=== PATIENT | male | born 1995 ===

== ENCOUNTER 2018-12-18 14:25 | Inpatient (IN) | payer MEDICAID ==
[~2018-12-18] VITALS: Ht 182.9 cm; Wt 67.0 kg
[2018-12-18] MEDS ORDERED: ACET160E61 PO (17:41)
[2018-12-18] MEDS ORDERED: MELA3TAB PO (17:41)
[2018-12-18] MEDS ORDERED: NALO4SPR NS (17:41)
[2018-12-18] MEDS ORDERED: COLL30OI TOP (17:41)
[2018-12-18] MEDS ORDERED: MUPI22OI2 (17:41)
[2018-12-18] MEDS ORDERED: POLY17PO4 GT (17:41)
[2018-12-18] MEDS ORDERED: COLL1POW2 MC (17:41)
[2018-12-18] MEDS ORDERED: CHLO473M3 MM (17:41)
--- NOTE | 2018-12-18 18:04 | NUR ---
Patient admitted around 521pm in stable condition with family via private transport. Alert and oriented x 3. On full code with regular diet. DX: AVM/ deconditioning. Ambulate with walker/assist. skin intact. black scar on chin noted with treatment order. open to air. On pain management for S/P AVM chin. Continent in bowel and bladder. Last BM-3 days ago. On clear liquid in past 3 days. MD Gant and MD Ventura aware. will continue monitor.
[2018-12-18 18:12] VITALS: BP 139/71
--- NOTE | 2018-12-18 19:30 | NUR ---
PATIENT RECEIVED IN BED. ALERT AND ORIENTED X 4. C/O PAIN UPON ASSESSMENT IN LOWER JAW. WILL ADMINISTER PAIN MEDICATIONS. NO C/O SOB AND DISTRESS. SIDE RAIL UP BILATERALLY FOR SAFETY. WILL CONTINUE TO MONITOR
[2018-12-18] MEDS: OXYCODONE HCL 5 MG TABLET PO PRN (19:44)
[2018-12-18 20:33] VITALS: BP 133/71
--- NOTE | 2018-12-18 20:45 | NUR ---
FEEDER CATCHER PADILLA CONTACTED FOR MED RECON. WILL CONTINUE TO MONITOR.
[2018-12-19 06:15] VITALS: BP 127/51
--- NOTE | 2018-12-19 07:00 | NUR ---
Will endorse to police shift commander nurse that patient is currently out on pass Addendum: 12/20/18 at 0746 by BECCA DORSEY RN RN correct time [id number]
[2018-12-19 08:19] VITALS: BP 119/52
--- NOTE | 2018-12-19 08:24 | NUR ---
Patient noted using the restroom, complaints of mild pain but denies need for pain medication, no signs of distress noted, temperature of 99.2 noted, awaiting medication reconciliation, MD Ventura states she will be reconciling medication , call light in reach, breakfast given, bed locked and in lowest position, all needs met at this time
[2018-12-19 11:44] LABS: BASOPHILS % (AUTO) 0.5 % (0.0-2.0); EOSINOPHILS # (AUTO) 0.1 K/uL (0.0-0.7); EOSINOPHILS % (AUTO) 1.2 % (0.0-7.0); HEMATOCRIT 30.4 % (36.7-47.1); HEMOGLOBIN 9.5 g/dL (12.5-16.3); LYMPHOCYTES # (AUTO) 0.8 K/uL (20.0-40.0); LYMPHOCYTES % (AUTO) 13.3 % (20.5-51.5); MEAN CORPUSCULAR HEMOGLOBIN 23.7 uug (23.8-33.4); MEAN CORPUSCULAR HGB CONC 31 g/dL (32.5-36.3); MEAN CORPUSCULAR VOLUME 75.9 fL (73.0-96.2); MONOCYTES # (AUTO) 0.4 K/uL (2.0-10.0); MONOCYTES % (AUTO) 7.1 % (0.0-11.0); NEUTROPHILS # (AUTO) 4.5 K/uL (1.8-8.9); NEUTROPHILS % (AUTO) 77.9 % (38.5-71.5); PLATELET COUNT (AUTO) 529 K/uL (152-348); RED BLOOD CELL COUNT(AUTO) 4.01 MIL/uL (4.06-5.63); WHITE BLOOD COUNT (AUTO) 5.8 K/uL (3.6-10.2)
[2018-12-19] MEDS ORDERED: THERAHONEY GEL 1.5 OZ TUBE TOP SCH (12:00)
[2018-12-19 12:05] LABS: BILIRUBIN,TOTAL 0.4 mg/dL (0.2-1.0); CREATININE 0.8 mg/dL (0.6-1.3); POTASSIUM 3.9 mmol/L (3.5-5.1); TOTAL PROTEIN, SERUM 8.5 g/dL (6.4-8.2)
[2018-12-19] MEDS: ACETAMINOPHEN ES 500 MG TABLET PO SCH ×2 (13:17→16:57)
[2018-12-19] MEDS: CHLORHEXIDINE GLUCONATE 15 ML MOUTHWASH MM SCH (16:52)
[2018-12-19] MEDS: OXYCODONE HCL 5 MG TABLET PO PRN (16:52)
[2018-12-19] MEDS ORDERED: MUPIROCIN 2% OINT 22 GM TUBE TP SCH (17:00)
--- NOTE | 2018-12-19 18:26 | NUR ---
MD miguel frankayed patient to go out on pass 12/19/18 [id number] via private transport, patient left facility at 1730
[2018-12-19 18:42] VITALS: BP 122/62
[2018-12-19 20:00] VITALS: BP 140/71
--- NOTE | 2018-12-19 20:30 | NUR ---
Patient came back from out on pass at 7:40pm, Patient is alert and oriented x4. In NO acute distress. Skin warm and dry to touch. Vital signs taken and wnl for patient. Patient refused night time medication of Melatonin 3mg stating "I don't need it", explained and offered medication, pt. still refused. Patient still noted with right cheek wound d/t VMA; treatment still on going. No complains of pain at this time. Needs attended, safety measures in place, call light left at bed side and will continue with care.
[2018-12-19] MEDS: MELATONIN 3 MG TABLET PO SCH (20:46)
[2018-12-20 05:10] VITALS: BP 123/61
--- NOTE | 2018-12-20 06:53 | NUR ---
Patient sleeping at this time, easily arousable. Pt. is A&O x4. No acute distress noted at this time. No complains of pain. Vital signs taken stable for patient. Afebrile. Needs attended, Pt. ambulatory by self, safety measures in place, call light left at bed side, endorsed to next shift and will continue with care.
[2018-12-20] MEDS: MIRALAX 17 GM POWD.PACK GT SCH (08:22)
[2018-12-20] MEDS: OXYCODONE HCL 5 MG TABLET PO PRN ×2 (08:22→22:01)
[2018-12-20] MEDS: CHLORHEXIDINE GLUCONATE 15 ML MOUTHWASH MM SCH ×2 (08:22→17:14)
[2018-12-20] MEDS: ACETAMINOPHEN ES 500 MG TABLET PO SCH ×3 (08:22→17:14)
[2018-12-20] MEDS: SANTYL TOP SCH (08:26)
--- NOTE | 2018-12-20 08:44 | NUR ---
Patient noted resting in bed, arouses easily, request for oxycodone for facial pain 10/07, no signs of distress noted, call light in reach, bed locked and in lowest position, all needs met at this time
[2018-12-20] MEDS ORDERED: COLLAGENASE OINT 30 GM TUBE TOP SCH (09:00)
[2018-12-20 09:48] VITALS: BP 107/52
[2018-12-20 16:48] VITALS: BP 104/54
[2018-12-20 19:30] VITALS: BP 127/67
--- NOTE | 2018-12-20 19:30 | NUR ---
Patient alert and oriented x 4. Received outside, sitting in the courtyard. C/O of SOB or distress. Pain in jaw upon assessment. Will administer pain medication. Will continue to monitor.
--- NOTE | 2018-12-20 21:00 | NUR ---
Patient requesting out on pass to buy food at [address]. MD Alfreda WILSON out on pass. Will continue to monitor.
[2018-12-20] MEDS: MELATONIN 3 MG TABLET PO SCH (22:00)
[2018-12-21 06:07] VITALS: BP 132/57
[2018-12-21] MEDS: CHLORHEXIDINE GLUCONATE 15 ML MOUTHWASH MM SCH ×2 (08:26→17:20)
[2018-12-21] MEDS: ACETAMINOPHEN ES 500 MG TABLET PO SCH ×3 (08:26→17:00)
[2018-12-21] MEDS: MIRALAX 17 GM POWD.PACK GT SCH (08:26)
[2018-12-21] MEDS: SANTYL TOP SCH (08:30)
--- NOTE | 2018-12-21 08:59 | NUR ---
Patient noted resting in bed, arouses easily, denies pain, no signs of distress noted, call light in reach, bed locked and in lowest position, all needs met at this time
[2018-12-21 09:29] VITALS: BP 121/48
--- NOTE | 2018-12-21 15:59 | NUR ---
INDIVIDUALIZE PLAN OF CARE
[2018-12-21 16:36] VITALS: BP 121/45
[2018-12-21] MEDS: OXYCODONE HCL 5 MG TABLET PO PRN (17:20)
[2018-12-21] MEDS: MELATONIN 3 MG TABLET PO SCH (20:31)
[2018-12-21 21:02] VITALS: BP 107/50
[2018-12-22 04:35] VITALS: BP 128/46
--- NOTE | 2018-12-22 04:46 | NUR ---
aaox4 ambulatory ad schuyler. compliant with meds/ care. VSS. Admitted for AVM (arterial venous malformation ) to his face. Patient wound care treatment to face/chin. Chin cleanse with a wound cleanser soak and patted the chin dry then apply the cream. Tolerated well. No ill effects noted. Denies any pain nor any discomfort. Voiding well. Will monitor patient.
[2018-12-22 08:06] VITALS: BP 113/61
[2018-12-22] MEDS: MIRALAX 17 GM POWD.PACK GT SCH (08:20)
[2018-12-22] MEDS: SANTYL TOP SCH (08:20)
[2018-12-22] MEDS: ACETAMINOPHEN ES 500 MG TABLET PO SCH ×3 (08:20→16:54)
[2018-12-22] MEDS: CHLORHEXIDINE GLUCONATE 15 ML MOUTHWASH MM SCH ×2 (08:21→16:53)
--- NOTE | 2018-12-22 14:49 | NUR ---
Patient continue therapy for unsteady gait for ADL acitivity. tolerated well. Continue change dressing of black scab in chin. no signs of infection. Continue pain management if needed. will continue monitor
[2018-12-22 15:34] VITALS: BP 105/56
[2018-12-22] MEDS: OXYCODONE HCL 5 MG TABLET PO PRN (16:54)
--- NOTE | 2018-12-22 19:40 | NUR ---
Patient alert and oriented x 4. Received patient lying in bed. no c/o any acute distress. no sob, no Pain in jaw upon assessment. v/s stable. Will continue to monitor. continue same plan of care.
[2018-12-22 20:19] VITALS: BP 123/54
[2018-12-22] MEDS: MELATONIN 3 MG TABLET PO SCH (21:56)
[2018-12-23 04:55] VITALS: BP 111/45
--- NOTE | 2018-12-23 05:23 | NUR ---
Patient sleeping at this time, easily arousable. Pt. is A&O x4. all due medications administered and tolerated well. No acute distress noted at this time. No complains of pain. V/S stable. Needs attended, Pt. ambulatory by self, safety measures in place, call light in reach, will continue same plan of care.
[2018-12-23] MEDS: MIRALAX 17 GM POWD.PACK GT SCH (08:24)
[2018-12-23] MEDS: ACETAMINOPHEN ES 500 MG TABLET PO SCH ×3 (08:24→17:00)
[2018-12-23] MEDS: CHLORHEXIDINE GLUCONATE 15 ML MOUTHWASH MM SCH ×2 (08:25→17:19)
[2018-12-23] MEDS: SANTYL TOP SCH (09:07)
[2018-12-23 09:38] VITALS: BP 124/43
--- NOTE | 2018-12-23 12:43 | NUR ---
Patient is alert and orientedx4 in stable condition. Continue daily treatment of surgical site wound in the chin. For discharge tomorrow to home. MD Longo and MD Gant aware. will continue monitor
[2018-12-23 16:39] VITALS: BP 109/49
[2018-12-23] MEDS: OXYCODONE HCL 5 MG TABLET PO PRN (17:19)
[2018-12-23] MEDS: MELATONIN 3 MG TABLET PO SCH (21:00)
[2018-12-23 21:08] VITALS: BP 133/59
[2018-12-24 05:10] VITALS: BP 103/56
--- NOTE | 2018-12-24 06:57 | NUR ---
patient alert and oriented x4. patient denied any pain/discomfort. patient in stable condition. patient able to verbalize needs and needs have been met. patient is compliant with medication and medical treatment. Will continue with plan of care and endorse to oncoming day shift.
[2018-12-24] MEDS: MIRALAX 17 GM POWD.PACK GT SCH (08:27)
[2018-12-24] MEDS: CHLORHEXIDINE GLUCONATE 15 ML MOUTHWASH MM SCH (08:27)
[2018-12-24] MEDS: ACETAMINOPHEN ES 500 MG TABLET PO SCH (08:27)
--- NOTE | 2018-12-24 08:30 | NUR ---
Patient awake, alert, oriented x 4, not in any form of distress, on room air. He denies any pain or discomfort at this time. Due medications administered and patient tolerated well. Assisted with his needs. Patient made aware of discharge plan for the day and is agreeable. Call light and frequently used items placed within reach.
[2018-12-24] MEDS: SANTYL TOP SCH (08:32)
[2018-12-24 08:52] VITALS: BP 127/45
--- NOTE | 2018-12-24 12:50 | NUR ---
Discharge instructions provided to the patient with verbalized understanding. Discharge papers signed by and given to the patient. All belongings well accounted for. Patient remains alert, oriented x 4, no complain of any pain or discomfort, ambulatory, not in any distress. Vital signs stable. Patient picked up by friend Familia Arevalo via private car.
== END 2018-12-24 12:50 | disposition home health service (06) | DRG 197 ==
PROVIDERS: ADMIT Physical Medicine & Rehabilitation Pain Medicine; ATTEND Physical Medicine & Rehabilitation Pain Medicine
DX: Q27.39 Arteriovenous malformation, other site (principal); G93.40 Encephalopathy, unspecified; E44.1 Mild protein-calorie malnutrition; E87.1 Hypo-osmolality and hyponatremia; D62 Acute posthemorrhagic anemia; R53.81 Other malaise; Z87.01 Personal history of pneumonia (recurrent); R74.0 Nonspecific elevation of levels of transaminase and lactic acid dehydrogenase [LDH]; Z91.013 Allergy to seafood; R62.50 Unspecified lack of expected normal physiological development in childhood; R46.89 Other symptoms and signs involving appearance and behavior
CPT/HCPCS: 36415; 71045; 83735; 85025; 87040; A4663; A9150